=== PATIENT | male | born 1955 ===

== ENCOUNTER 2017-12-12 17:18 | Emergency (ER) | payer SELFPAY ==
[2017-12-12] MEDS ORDERED: Lidocaine 1%* 5 ML VIAL INJ ONE (17:47)
--- NOTE | 2017-12-12 17:51 | ED ---
Laceration/Wound HPI - HPI Summary HPI Summary: 62-year-old male presents with head injury today. He states he tripped on the side walk. He has an abrasion to his left knee and left shoulder. He also his laceration near his left eyebrow. No loss conscious. He denies vomiting but admits to nausea. No change in vision. Denies any dizziness. Has minimal headache. not on blood thinners. Has no medical conditions. immunizations are up-to-date. Is currently traveling here. Fall was mechanical fall. He denies any chest pain or shortness breath. - History of Current Complaint Stated Complaint: LACERATION Time Seen by Provider: 12/12/17 17:42 Pain Intensity: 4 - Allergy/Home Medications Allergies/Adverse Reactions: Allergies Allergy/AdvReac Type Severity Reaction Status Date / Time Penicillins Allergy Anaphylatic Verified 12/12/17 17:33 Shock Home Medications: Home Medications NK [No Home Medications Reported] 12/12/17 [History Confirmed 12/12/17] PMH/Surg Hx/FS Hx/Imm Hx Endocrine/Hematology History: Denies: Hx Diabetes Cardiovascular History: Denies: Hx Auto Implanted Cardiovert Defib Infectious Disease History: No Infectious Disease History: Denies: Traveled Outside the [place] in Last 30 Days - Family History Known Family History: Negative: Diabetes - Social History Alcohol Use: Occasionally Substance Use Type: Reports: None Smoking Status (MU): Never Smoked Tobacco Review of Systems Negative: Fever Negative: Chest Pain Negative: Shortness Of Breath Positive: Other - facial laceration All Other Systems Reviewed And Are Negative: Yes Physical Exam Triage Information Reviewed: Yes Vital Signs On Initial Exam: Initial Vitals Temp Pulse Resp BP Pulse Ox 98.2 F 97 18 148/95 98 12/12/17 17:29 12/12/17 17:29 12/12/17 17:29 12/12/17 17:29 12/12/17 17:29 Vital Signs Reviewed: Yes Appearance: Positive: Well-Appearing Skin: Positive: Other - 2cm by 1/2cm lac by left side forehead, abrasion to left knee and shoulder Head/Face: Positive: Normal Head/Face Inspection, Other - no step off, racoon eyes, nevarez sign Eyes: Positive: Normal, Conjunctiva Clear ENT: Positive: Pharynx normal Respiratory/Lung Sounds: Positive: Clear to Auscultation, Breath Sounds Present Cardiovascular: Positive: Normal, RRR Musculoskeletal: Positive: Normal Neurological: Positive: Sensory/Motor Intact, Alert, Oriented to Person Place, Time, CN Intact II-III Psychiatric: Positive: Normal - [place] Coma Scale Best Eye Response: 4 - Spontaneous Best Motor Response: 6 - Obeys Commands Best Verbal Response: 5 - Oriented Coma Scale Total: 15 Procedures - Laceration/Wound Repair 1 Location: face Description: Irregular Anesthesia: Local, 1.0% Length, Depth and Shape: 2cm by 1cm triangular Irrigated w/ Saline (ccs): 100 Closure: Single Layer Suture Type: Prolene Number of Sutures: 4 Layer Closure?: No Sterile Dressing Applied?: No Diagnostics - Vital Signs Vital Signs Temp Pulse Resp BP Pulse Ox 12/12/17 17:29 98.2 F 97 18 148/95 98 - Laboratory Lab Statement: Any lab studies that have been ordered have been reviewed, and results considered in the medical decision making process. Laceration Repair Course/Dx - Course Course Of Treatment: 62-year-old male presents with head injury today. He states he tripped on the side walk. He has an abrasion to his left knee and left shoulder. He also his laceration near his left eyebrow. No loss conscious. He denies vomiting but admits to nausea. No change in vision. Denies any dizziness. Has minimal headache. not on blood thinners. Has no medical conditions. immunizations are up-to-date. Is currently traveling here. Fall was mechanical fall. He denies any chest pain or shortness breath. on exam has 2 cm x 1 similar laceration near left eyebrow. Clean area and placed 4 sutures. Normal neuro exam. According to [place] [facility] rules no head imaging needed. Had abrasion on the knee cleaned and placed carly. Told to keep areas clean. Understands signs to return to ED for. Patient understands agrees with plan. will have follow up with primary about blood pressure as is elevated at this time. - Differential Dx Differental Diagnoses: Abrasion, Avulsion, Laceration, Other - head injury - Clinical Impression Provider Diagnoses: Facial laceration, Head injury, Knee abrasion Discharge - Sign-Out/Discharge Documenting (check all that apply): Patient Departure All imaging exams completed and their final reports reviewed: No Studies - Discharge Plan Condition: Good Disposition: HOME Patient Education Materials: Care For Your Stitches (ED) Referrals: No Primary Care Phys,NOPCP [Primary Care Provider] - Additional Instructions: Keep area clean and dry for 24 hours Take Tylenol or ibuprofen for pain every 6 hours Return to ED or urgent care for suture removal in 5 days Return to ED if develop signs of infection such as fever, spreading redness, or pus formation - Billing Disposition and Condition Condition: GOOD Disposition: Home
== END 2017-12-12 18:30 | disposition home or self-care (01) ==
LOC: UCEAST 17:18
DX: S01.81XA Laceration without foreign body of other part of head, initial encounter (principal); S09.90XA Unspecified injury of head, initial encounter; S80.212A Abrasion, left knee, initial encounter; W01.198A Fall on same level from slipping, tripping and stumbling with subsequent striking against other object, initial encounter; Y93.01 Activity, walking, marching and hiking; Y92.480 Sidewalk as the place of occurrence of the external cause; Z88.0 Allergy status to penicillin
CPT/HCPCS: 12001; 99201; G0463